=== PATIENT | female | born 1995 | race Caucasian/White ===

== ENCOUNTER 2017-07-23 18:53 | Emergency (ER) | payer OTHER ==
[~2017-07-23] VITALS: Ht 172.7 cm; Wt 60.8 kg
[2017-07-23 18:59] VITALS: BP 143/84
[2017-07-23] MEDS ORDERED: KETOROLAC TROMETHAMINE INJ 30 MG/ML VIAL ONE (19:29)
[2017-07-23] MEDS ORDERED: KETOROLAC TROMETHAMINE INJ 60 MG/2 ML VIAL IM ONE (19:30)
--- NOTE | 2017-07-23 19:36 | NUR ---
REPORT GIVEN TO [facility].
--- NOTE | 2017-07-23 19:41 | NUR ---
KNEE IMMOBILIZER APPLIED BY EMT, CRUTCH TRAINING DONE.
== END 2017-07-23 19:51 | disposition home or self-care (01) ==
LOC: ER 18:57
DX: M23.8X1 Other internal derangements of right knee (principal); M25.561 Pain in right knee
CPT/HCPCS: A4606; J1885; Z7610